=== PATIENT | female | born 1955 | race American Indian/Alaskan Native ===

== ENCOUNTER 2019-08-04 20:15 | Emergency (ER) | payer MEDICARE ==
--- NOTE | 2019-08-04 20:50 | Event Note ---
ED Screening Note Date of service: 08/04/19 Time: 20:49 ED Screening Note: This is a 64 y.o. F. that presents to the ER with low back pain since last night. Denies injury This initial assessment/diagnostic orders/clinical plan/treatment(s) is/are subject to change based on patients health status, clinical progression and re- assessment by fellow clinical providers in the ED. Further treatment and workup at subsequent clinical providers discretion. Patient/guardian urged not to elope from the ED as their condition may be serious if not clinically assessed and managed. Initial orders include: XR L-spine
--- NOTE | 2019-08-04 21:45 | XRay Report ---
LUMBAR SPINE 3 VIEWS INDICATION: low back pain COMPARISON: None. FINDINGS: There is no fracture, subluxation, or other acute radiographic abnormality of the lumbar spine. There is slight scoliotic-like curvature convex to the left. There is mild disc space narrowing at L3-4 wi th minimal anterior osteophyte formation. Signer Name: Jason Beth MD Signed: 08/04/2019 9:40 PM Workstation Name: [id number]
[2019-08-04] MEDS ORDERED: TORADOL IM ONE (22:38)
--- NOTE | 2019-08-04 23:09 | Emergency Department Report ---
ED Back Pain/Injury HPI - General Chief Complaint: Back Pain/Injury Stated Complaint: BACK PAIN Time Seen by Provider: 08/04/19 20:48 Source: patient Limitations: No Limitations - History of Present Illness Initial Comments: This is a 64 y.o. F. that presents to the ER with low back pain since last night. Complaint: back pain Onset/Timin -: days(s) Similar Symptoms Previously: Yes Place: home Radiation: left leg Severity: moderate Severity scale (0 -10): 5 Quality: burning, aching Consistency: intermittent Improves With: other (rest ) Worsens With: movement, sitting upright, walking Context: unknown Associated Symptoms: denies: weakness, numbness, difficulty walking, cough, difficulty urinating, incontinence, fever/chills, constipation, headaches, abdominal pain, loss of appetite, malaise, nausea/vomiting, shortness of breath - Related Data Previous Rx's Medication Instructions Recorded Last Taken Type Acetaminophen [Acetaminophen TAB] 1,000 mg PO Q6HR PRN 30 Days #30 08/05/19 Unknown Rx tablet Cyclobenzaprine HCl [Flexeril 5 MG 5 mg PO TID PRN #30 tab 08/05/19 Unknown Rx TAB] Menthol/Camphor [Ebro [place]wn[place] 1,000 gm TP QID PRN #1 tube 08/05/19 Unknown Rx Ointment] Allergies Allergy/AdvReac Type Severity Reaction Status Date / Time No Known Allergies Allergy Verified 08/04/19 20:50 ED Review of Systems ROS: Stated complaint: BACK PAIN Other details as noted in HPI Constitutional: denies: chills, fever Eyes: denies: eye pain, eye discharge, vision change ENT: denies: ear pain, throat pain Respiratory: denies: cough, shortness of breath, wheezing Cardiovascular: denies: chest pain, palpitations Endocrine: no symptoms reported Gastrointestinal: denies: abdominal pain, nausea, diarrhea Genitourinary: denies: urgency, dysuria, discharge Musculoskeletal: back pain, arthralgia, myalgia Skin: denies: rash, lesions Neurological: denies: headache, weakness, paresthesias Psychiatric: denies: anxiety, depression Hematological/Lymphatic: denies: easy bleeding, easy bruising ED Past Medical Hx - Social History Smoking Status: Never Smoker Substance Use Type: Alcohol - Medications Home Medications: Home Medications Medication Instructions Recorded Confirmed Last Taken Type Acetaminophen [Acetaminophen TAB] 1,000 mg PO Q6HR PRN 30 Days #30 08/05/19 Unknown Rx tablet Cyclobenzaprine HCl [Flexeril 5 MG 5 mg PO TID PRN #30 tab 08/05/19 Unknown Rx TAB] Menthol/Camphor [Ebro [place] 1,000 gm TP QID PRN #1 tube 08/05/19 Unknown Rx Ointment] ED Physical Exam - General Limitations: No Limitations General appearance: alert, in no apparent distress - Head Head exam: Present: normocephalic, normal inspection - Eye Eye exam: Present: normal appearance, PERRL, EOMI Pupils: Present: normal accommodation - ENT ENT exam: Present: mucous membranes moist - Neck Neck exam: Present: normal inspection, full ROM. Absent: tenderness, meningismus, lymphadenopathy, thyromegaly - Expanded Neck Exam Expanded Neck exam: Absent: tenderness (no posterior vertebral point tenderness rom intact without restriction ), midline deformity, anterior neck swelling, thyroid mass, carotid bruit, tracheal deviation - Respiratory Respiratory exam: Present: normal lung sounds bilaterally. Absent: respiratory distress, wheezes, stridor, chest wall tenderness, prolonged expiratory - Cardiovascular Cardiovascular Exam: Present: regular rate, normal rhythm, normal heart sounds. Absent: systolic murmur, diastolic murmur, rubs, gallop - GI/Abdominal GI/Abdominal exam: Present: soft, normal bowel sounds. Absent: distended, tenderness, bruit, hernia - Rectal Rectal exam: Present: deferred - Extremities Exam Extremities exam: Present: normal inspection, full ROM, normal capillary refill. Absent: tenderness, pedal edema, joint swelling, calf tenderness - Back Exam Back exam: Present: normal inspection, full ROM, muscle spasm (left lateral neck and back pain ), paraspinal tenderness. Absent: tenderness, CVA tenderness (R), CVA tenderness (L), rash noted - Neurological Exam Neurological exam: Present: alert, oriented X3, CN II-XII intact, normal gait, reflexes normal. Absent: motor sensory deficit - Expanded Neurological Exam Expanded Neurological exam: Present: innattentive Patient oriented to: Present: person, place, time Speech: Present: fluid speech, expressive aphasia Cranial nerves: EOM's Intact: Normal, Gag Reflex: Normal, Tongue Deviation: Normal, Nystagmus: Normal, Facial Sensation: Normal, Facial Palsy with Forehead Movement: Normal, Facial Palsy without Forehead Movement: Normal Cerebellar function: Finger to Nose: Abnormal Left, Normal, Heel to Otero: Abnormal Left, Normal, Romberg: Abnormal Left, Normal Upper motor neuron: Shon Neglect: Normal, Pronator Drift: Normal, Sensory Extinction: Normal Sensory exam: Upper Extremity Light Touch: Normal, Upper Extremity Pin Prick: Normal, Upper Extremity Temperature: Normal, UE 2 Point Discrimination: Normal, Lower Extremity Light Touch: Normal, Lower Extremity Pin Prick: Normal, Lower Extremity Temperature: Normal, LE 2 Point Discrimination: Normal Motor strength exam: RUE: 5, LUE: 5, RLE: 5, LLE: 5 DTR: bicep (R): 2+, bicep (L): 2+, tricep (R): 2+, tricep (L): 2+, ankle (R): 2+, ankle (L): 2+ Best Eye Response (Sidney): (4) open spontaneously Best Motor Response (Sidney): (6) obeys commands Best Verbal Response (Rufus): (5) oriented Sidney Total: 15 - Psychiatric Psychiatric exam: Present: normal affect, normal mood - Skin Skin exam: Present: warm, dry, intact, normal color. Absent: rash ED Course Vital Signs 08/04/19 20:19 Temperature 98.0 F Pulse Rate 78 Respiratory 16 Rate Blood Pressure 162/80 O2 Sat by Pulse 94 Oximetry ED Medical Decision Making - EKG Data EKG shows normal: sinus rhythm, axis, intervals, QRS complexes, ST-T waves Rate: normal - EKG Data When compared to previous EKG there are: previous EKG unavailable Interpretation: normal EKG (Ekg interp by ED Attending NSR no [facility], ) - Radiology Data Radiology results: report reviewed, image reviewed Ordering Physician: JOSIAH HOWARD Date of Service: 08/04/19 Procedure(s): XR spine lumbosacral 2-3V Accession Number(s): [id number] cc: JOSIAH HOWARD Fluoro Time In Minutes: LUMBAR SPINE 3 VIEWS INDICATION: low back pain COMPARISON: None. FINDINGS: There is no fracture, subluxation, or other acute radiographic abnormality of the lumbar spine. There is slight scoliotic-like curvature convex to the left. There is mild disc space narrowing at L3-4 with minimal anterior osteophyte formation. Signer Name: Jason Beth MD Signed: 08/04/2019 9:40 PM Workstation Name: [email or web address] [id number] Transcribed By: SS Dictated By: Jason Beth MD Electronically Authenticated By: Jason Beth MD Signed Date/Time: 08/04/192139 DD/ 38 TD/TT: - Medical Decision Making xray mild scoliosis, ekg: NSR interp by ED attending, low back pain is improved, there is no no numbness no tingling. no deformity no loss or decrease in bowel or bladder function. plan, tylenol, tiger balm, flexeril 5 mg po bid Critical care attestation.: If time is entered above; I have spent that time in minutes in the direct care of this critically ill patient, excluding procedure time. ED Disposition Clinical Impression: Lumbar strain Qualifiers: Encounter type: initial encounter Qualified Code(s): S39.012A - Strain of muscle, fascia and tendon of lower back, initial encounter Disposition: - TO HOME OR SELFCARE Is pt being admited?: No Does the pt Need Aspirin: No Condition: Stable Instructions: Low Back Strain (ED), Core Strengthening Exercises (GEN) Prescriptions: Acetaminophen [Acetaminophen TAB] 1,000 mg PO Q6HR PRN 30 Days #30 tablet PRN Reason: pain Cyclobenzaprine HCl [Flexeril 5 MG TAB] 5 mg PO TID PRN #30 tab PRN Reason: Pain , Severe (7-10) Menthol/Camphor [Ebro Newnan Ointment] 1,000 gm TP QID PRN #1 tube PRN Reason: Pain , Severe (7-10) Referrals: MARISSA BARRAZA MD [Primary Care Provider] - 3-5 Days Forms: Work/School Release Form(ED) Time of Disposition: 00:29
[2019-08-04 23:28] LABS: Hematocrit 40.6 % (30.3-42.9); Hemoglobin 13.3 gm/dl (10.1-14.3); Mean Corpuscular HGB Conc 33 % (30-34); Mean Corpuscular Volume 90 fl (79-97); Platelet Count 276 K/mm3 (140-440); Red Blood Count 4.51 M/mm3 (3.65-5.03); Red Cell Distribution Width 14.7 % (13.2-15.2)
[2019-08-04 23:45] LABS: Blood Urea Nitrogen 17 mg/dL (7-17)
[2019-08-04 23:46] LABS: Alanine Aminotransferase 15 units/L (7-56); Albumin 4.7 g/dL (3.9-5); BUN/Creatinine Ratio 21; Hemolysis Index 10
[2019-08-05 00:45] VITALS: BP 158/84
== END 2019-08-05 00:44 | disposition home or self-care (01) ==
LOC: ED 20:15
DX: S39.012A Strain of muscle, fascia and tendon of lower back, initial encounter (principal); X58.XXXA Exposure to other specified factors, initial encounter; Y93.89 Activity, other specified; Y92.89 Other specified places as the place of occurrence of the external cause; Y99.8 Other external cause status
CPT/HCPCS: 36415; 72100; 80053; 84484; 85027; 93005; 93010; 96372; 99283; J1885